=== PATIENT | male | born 1945 | race Hispanic/Latino ===

== ENCOUNTER 2022-04-28 08:14 | Day surgery (SDC) | payer MEDICARE, OTHER ==
--- NOTE | 2022-04-23 13:14 | Anesthesia Consultation ---
Anesthesia Consult and Med Hx Date of service: 04/28/22 - Airway Anesthetic Teeth Evaluation: Good ROM Head & Neck: Adequate Mental/Hyoid Distance: Adequate Mallampati Class: Class II Intubation Access Assessment: Good - Pulmonary Exam CTA: Yes - Cardiac Exam Cardiac Exam: RRR - Pre-Operative Health Status ASA Pre-Surgery Classification: ASA3 - Pulmonary Hx Smoking: No Hx Asthma: Yes (DAILY INHALERS) Hx Respiratory Symptoms: No SOB: No Hx Sleep Apnea: Yes - Cardiovascular System Hx Hypertension: No Hx Heart Attack/AMI: No Hx Percutaneous Transluminal Coronary Angioplasty (PTCA): No Hx Cardia Arrhythmia: Yes (a-fib with RVR s/p ablation 4wks ago. 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 NO DEFICITS.) Hx Psychiatric Problems: No - Gastrointestinal Hx Gastroesophageal Reflux Disease: Yes - Endocrine Hx Renal Disease: No Hx Liver Disease: No Hx Insulin Dependent Diabetes: No Hx Thyroid Disease: No Hx Hyperthyroidism: Yes - Hematic Hx Sickle Cell Disease: No - Other Systems Hx Alcohol Use: Yes (RARELY) Hx Substance Use: No Hx Cancer: Yes (Hx BASAL CELL CARCINOMA. SURGERY TO REMOVE CARCINOMA.) Hx Obesity: No
[2022-04-23 13:44] LABS: Hematocrit 47.1 % (35.5-45.6); Hemoglobin 16.1 gm/dl (11.8-15.2); Mean Corpuscular HGB Conc 34 % (32-34); Mean Corpuscular Volume 92 fl (84-94); Platelet Count 232 K/mm3 (140-440); Red Blood Count 5.15 M/mm3 (3.65-5.03); Red Cell Distribution Width 13.7 % (13.2-15.2)
[2022-04-23 14:08] LABS: Albumin 4.3 g/dL (3.9-5); Calcium 9.5 mg/dL (8.4-10.2)
[~2022-04-28 08:14] MED LIST: LACTATED RINGERS 1,000 ML IV SCH; MIDAZOLAM 2 MG/2 ML INJ IV NR
[2022-04-28 12:14] VITALS: BP 133/79
== END 2022-04-28 08:15 | disposition home or self-care (01) ==
LOC: OR 08:14
PROVIDERS: ATTEND Urology
DX: N40.2 Nodular prostate without lower urinary tract symptoms (principal); I42.9 Cardiomyopathy, unspecified; I48.91 Unspecified atrial fibrillation; J45.909 Unspecified asthma, uncomplicated; G47.30 Sleep apnea, unspecified; K21.9 Gastro-esophageal reflux disease without esophagitis; E05.90 Thyrotoxicosis, unspecified without thyrotoxic crisis or storm; Z53.8 Procedure and treatment not carried out for other reasons; Z72.89 Other problems related to lifestyle; Z20.822 Contact with and (suspected) exposure to COVID-19; Z79.899 Other long term (current) drug therapy; Z88.6 Allergy status to analgesic agent; Z88.8 Allergy status to other drugs, medicaments and biological substances; Z98.49 Cataract extraction status, unspecified eye; Z90.49 Acquired absence of other specified parts of digestive tract; Z87.442 Personal history of urinary calculi; Z85.89 Personal history of malignant neoplasm of other organs and systems; Z98.890 Other specified postprocedural states
CPT/HCPCS: 36415; 80053; 85027; J7120; U0003; J2250

== ENCOUNTER 2022-05-05 06:00 | Day surgery (SDC) | payer MEDICARE, OTHER ==
[~2022-05-05 06:00] MED LIST changes: +ACETAMINOPHEN 325 MG TAB PO SCH; +GABAPENTIN 300 MG CAP PO NR; -MIDAZOLAM 2 MG/2 ML INJ IV NR
[2022-05-05] MEDS ORDERED: LIDOCAINE MPF (2%) 20 MG/1 ML VIAL 5 ML ONE (07:19)
[2022-05-05] MEDS ORDERED: fentaNYL 100 MCG/2 ML INJ ONE (07:20)
[2022-05-05] MEDS ORDERED: propofoL 200 MG/20 ML VIAL IV ONE (07:20)
[2022-05-05] MEDS ORDERED: MIDAZOLAM 2 MG/2 ML INJ ONE (07:20)
[2022-05-05] MEDS ORDERED: BUPIVACAINE/PF (0.25%) 2.5 MG/ML 30 ML VIAL INFILTRATI ONE ×2 (07:21→08:31)
[2022-05-05] MEDS ORDERED: NEOMY 40 MG/POLYMYXIN B 200,000 UNITS/ML (GU) AMPULE IR ONE ×2 (07:22→08:31)
--- NOTE | 2022-05-05 07:32 | Anesthesia Day of Surgery ---
Anesthesia Day of Surgery - Day of Surgery Patient Examined: Yes Patient H&P Reviewed: Yes Patient is NPO: Yes
--- NOTE | 2022-05-05 07:37 | Anesthesia Consultation ---
Anesthesia Consult and Med Hx Date of service: 05/05/22 - Airway ROM Head & Neck: Adequate Mental/Hyoid Distance: Adequate Mallampati Class: Class II Intubation Access Assessment: Probably Good - Pulmonary Exam CTA: Yes - Cardiac Exam Cardiac Exam: No Murmur Anesthetic Concerns: Afib/Aflutter - Pre-Operative Health Status ASA Pre-Surgery Classification: ASA3 Proposed Anesthetic Plan: General - Pulmonary Hx Smoking: No Hx Asthma: Yes (DAILY INHALERS) Hx Respiratory Symptoms: No SOB: No Hx Sleep Apnea: Yes (DX SLEEP APNEA WITH CPAP USE) - Cardiovascular System Hx Hypertension: No Hx Heart Attack/AMI: No Hx Percutaneous Transluminal Coronary Angioplasty (PTCA): No Hx Cardia Arrhythmia: Yes (a-fib with RVR s/p ablation 2018. 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 NO DEFICITS.) Hx Psychiatric Problems: No - Gastrointestinal Hx Gastroesophageal Reflux Disease: Yes - Endocrine Hx Renal Disease: No Hx Liver Disease: No Hx Insulin Dependent Diabetes: No Hx Thyroid Disease: No Hx Hyperthyroidism: Yes - Hematic Hx Anemia: No Hx Sickle Cell Disease: No - Other Systems Hx Alcohol Use: Yes (RARELY) Hx Substance Use: No Hx Cancer: Yes (Hx BASAL CELL CARCINOMA. SURGERY TO REMOVE CARCINOMA.) Hx Obesity: No
[2022-05-05] MEDS ORDERED: ceFAZolin/STERILE WATER 2 GM/20 ML SYRINGE IV NR (07:58)
[2022-05-05] MEDS ORDERED: ceFAZolin/Water 2 GM/20 ML 2 GM/20 ML SYRINGE IV ONE (08:02)
[2022-05-05] MEDS ORDERED: HYDROmorphone 0.5 MG/0.5 ML INJ IV PRN ×2 (08:30→09:08)
[2022-05-05] MEDS ORDERED: SODIUM CHLORIDE 0.9% IRR 1,500 ML BOTTLE IR ONE (08:35)
[2022-05-05] MEDS ORDERED: HYDROcodone/ACETAMINOPHEN 5-325 MG TAB PO PRN (09:00)
--- NOTE | 2022-05-05 10:07 | Post Operative Note ---
Date of procedure: 05/05/22 Pre-op diagnosis: lih Post-op diagnosis: same Findings: large defect Procedure: lih repair Anesthesia: GETA Surgeon: MAYNOR RUGGIERO Estimated blood loss: minimal Pathology: none Condition: stable Disposition: PACU
--- NOTE | 2022-05-05 10:09 | Discharge Summary ---
Short Stay Discharge Plan Activity: other (no straining ) Weight Bearing Status: Full Weight Bearing Diet: low fat, low cholesterol, low salt Wound: open to air Durable Medical Equipment Needed Upon Discharge: other (ice packs in rr ) Follow up with: TESFAYE MCCORMICK MD [Primary Care Provider] - 7 Days MAYNOR RUGGIERO MD [Staff Physician] - 7 Days
[2022-05-05 11:22] VITALS: BP 113/70
--- NOTE | 2022-05-05 12:40 | Operative Report ---
DATE OF SURGERY: 05/05/2022 PREOPERATIVE DIAGNOSES: Large left inguinal hernia. POSTOPERATIVE DIAGNOSES: Large left inguinal hernia. PROCEDURES: Left inguinal hernia repair with a plug and mesh, with a large defect. SURGEONS: Grant Douglas MD and Dr. Blunt. ANESTHESIA: General. FINDINGS: This is a gentleman who presents with progressing increasing defect in the left inguinal area and swelling. He now presents for treatment. DESCRIPTION OF PROCEDURE: The patient was brought to the operating room and placed on the operating table. Following induction of anesthesia, an oblique incision was made over the left inguinal area. This was carried down to the cord. A large defect was seen from the internal ring, a big hole, which was dissected away from the cord. The nerve was retracted medially. The cord was isolated and the defect easily fit the medium plug, which was secured. This sac was not opened. It was all retracted to the preperitoneal space. A keyhole mesh was then applied circumferentially. The patient tolerated the procedure well. No significant complication. Minimal blood loss, less than 5 mL, brought to recovery room after the closure with 2-0 Vicryl and 3-0 Vicryl and skin with skin clips. He was brought to recovery in stable condition. The meshes were irrigated and the incision with antibiotic solution. Brought to recovery room in good condition. TID: [id number] RECEIPT: [id number] HAMILTON/VINEET
--- NOTE | 2022-05-05 13:00 | Post Anesthesia Evaluation ---
- Post Anesthesia Evaluation Patient Participated: Yes Airway Patent: Yes Stable Respiratory Function: Yes Nausea/Vomiting: No Temp > 96.8F: Yes Pain Manageable: Yes Adequeate Hydration: Yes Anesthesia Complications: No
== END 2022-05-05 11:30 | disposition home or self-care (01) ==
LOC: OR 06:00
PROVIDERS: ATTEND Urology
DX: K40.90 Unilateral inguinal hernia, without obstruction or gangrene, not specified as recurrent (principal); I48.91 Unspecified atrial fibrillation; E03.9 Hypothyroidism, unspecified; J45.909 Unspecified asthma, uncomplicated; K21.9 Gastro-esophageal reflux disease without esophagitis; Z90.49 Acquired absence of other specified parts of digestive tract; Z87.442 Personal history of urinary calculi; Z87.440 Personal history of urinary (tract) infections; Z72.89 Other problems related to lifestyle; Z98.890 Other specified postprocedural states; Z88.6 Allergy status to analgesic agent; Z88.8 Allergy status to other drugs, medicaments and biological substances; Z79.899 Other long term (current) drug therapy; Z98.49 Cataract extraction status, unspecified eye; Z86.73 Personal history of transient ischemic attack (TIA), and cerebral infarction without residual deficits
CPT/HCPCS: 49505; C1781; J0690; J2250; J2704; J3010; J3490; J7120